=== PATIENT | female | born 1990 | race Caucasian/White ===

== ENCOUNTER 2021-05-31 11:15 | Emergency (ER) | payer OTHER, SELFPAY ==
--- NOTE | ~2021-05-31 | XR_ITS ---
EXAMINATION: XR CHEST CLINICAL INFORMATION: Cough. COMPARISON: Chest 11/19/2019 TECHNIQUE: Frontal view of the chest was obtained. FINDINGS: The lungs are hypoexpanded but clear of acute process. The heart size and pulmonary vascularity is normal. No gross bony abnormality seen. XR/XR chest 1V IMPRESSION: Unremarkable chest exam
[2021-05-31 11:34] VITALS: BP 144/80; PULSE 103; RESP 20; TEMP 36.4; O2SAT 100; BMI 46.0
--- NOTE | 2021-05-31 11:51 | ED.URI ---
HPI - URI/Sore Throat General Chief Complaint: General Medical Stated Complaint: sob Time Seen by Provider: 05/31/21 11:36 Source: patient Mode of arrival: ambulatory Limitations: no limitations History of Present Illness MD elicited complaint: fever, cough, sore throat and rhinorrhea Pertinent past history: asthma Onset (ago): day(s) (2) Consistency: constant Description of mucous: clear Able to tolerate fluids by mouth: Yes Exacerbating factors: nothing Relieving factors: nothing Context: sick contacts (mother in law has COVID) Associated symptoms: fever, chills, myalgias, headache, rhinorrhea, sore throat and cough Treatments prior to arrival: ibuprofen Related Data Previous Rx's Medication Instructions Recorded albuterol sulfate 90 mcg/actuation 2 puff INHALATION Q4-6H PRN #6.7 g 04/17/21 aerosol inhaler (ProAir HFA) cetirizine 10 mg tablet 10 mg PO DAILY PRN #30 tab 04/17/21 metformin 500 mg tablet 500 mg PO BID 30 Days #60 tab 04/17/21 ondansetron 4 mg disintegrating 4 mg PO Q8H PRN #20 tab 05/31/21 tablet Allergies Allergy/AdvReac Type Severity Reaction Status Date / Time peanut [PEANUTS] Allergy Unknown ANAPHYLAXIS Unverified 07/05/20 19:06 Review of Systems Review of Systems: Constitutional : positive Fever, positive Chills, positive fatigue, positive Malaise ENT/Mouth : positive sore throat, positive runny nose Eyes: No Discharge Cardiovascular : No Chest Pain, No SOB Respiratory : No Cough, No Sputum Gastrointestinal : No Nausea, No Vomiting, No Diarrhea Genitourinary : No Dysuria, No Urinary Frequency Musculoskeletal : positive Myalgia Skin : No rash Neuro : No Headache All other systems are reviewed and are negative [facility] Past Medical History Attestation statement: The following information was validated with the patient. Medical History Asthma Diabetes Hyperthyroidism Surgical History Hx of cholecystectomy Social History Social History (Updated 05/31/21 @ 11:52 by Jessica Razo DO) Patient Tobacco Use Status: Never used Tobacco Use of substances other than those prescribed or required for medical reasons: No Advance Directives: No Advance Directives Information Provided: No Patient : No Physical Exam Vital Signs: Vital Signs: Last Vital Signs Temp 97.5 F 05/31/21 11:34 Pulse 103 H 05/31/21 11:34 Resp 20 05/31/21 11:34 BP 144/80 H 05/31/21 11:34 Pulse Ox 100 05/31/21 11:34 Body Mass Index 46.0 Appearance: Alert. Oriented X3. No acute distress. Anxious Eyes: Pupils equal, round and reactive to light. ENT: Pharynx normal. Neck: Normal inspection. Neck supple. CVS: Normal heart rate and rhythm. Pulses normal. Respiratory: No respiratory distress. Breath sounds normal. Abdomen: Soft and nontender. Skin: Skin warm and dry. Normal skin color. Normal skin turgor. Extremities: No lower extremity edema. No calf ttp Neuro: Oriented X 3. No motor deficit. No sensory deficit. Course Course Course Narrative: negative xray, no hypoxia, stable for DC MDM - URI/Sore Throat MDM Narrative Medical decision making narrative: 30 yo female with hx of asthma, DM here with COVID like symptoms taking care of a COVID family member - she belongs to a [employer] that does not want its followers to get vaccinated as this is some form of a demonic plague, at this time CXR and COVID swab ordered, she is 100% on RA. Lab Data Labs: Lab Results 05/31/21 Range/Units 11:59 COVID-19 (AUTUMN) Negative (Negative) COVID-19 Clin Com See Note Discharge Plan Discharge Clinical Impression: Acute viral syndrome, Close exposure to 2019-nCoV Patient Disposition: Home, Self-Care Instructions: Viral Syndrome (ED), COVID-19 (Coronavirus Disease 2019) (ED) Additional Instructions: return to ED for any worsening symptoms or concerns negative COVID test today - presumed COVID would retest in 2 days Chest xray negative Prescriptions: New ondansetron 4 mg tablet,disintegrating 4 mg PO Q8H PRN (Reason: nausea and vomiting) Qty: 20 RF: 0 No Action albuterol sulfate [ProAir HFA] 90 mcg/actuation HFA aerosol inhaler 2 puff inhalation Q4-6H PRN (Reason: shortness of breath or wheezing) Qty: 6.7 RF: 1 metformin 500 mg tablet 500 mg PO BID 30 Days Qty: 60 RF: 1 cetirizine 10 mg tablet 10 mg PO DAILY PRN (Reason: allergy symptoms) Qty: 30 RF: 1 Stand Alone Forms: Work/School Release
[2021-05-31] MEDS: Ondansetron ODT 4 MG TAB.RAPDIS TRANSLINGU (12:10)
[2021-05-31 12:24] LABS: COVID-19 Test Negative (Negative)
[2021-05-31] MEDS: Acetaminophen 325 MG TABLET 650 MG PO (12:26)
[2021-05-31] MEDS: Ibuprofen 600 MG TABLET PO (12:26)
== END 2021-05-31 12:53 | disposition home or self-care (01) ==
PROVIDERS: Emergency Provider Emergency Medicine; PCP Physician Assistant
DX: B34.9 Viral infection, unspecified (principal); R06.02 Shortness of breath; R50.9 Fever, unspecified; R51.9 Headache, unspecified; M79.10 Myalgia, unspecified site; Z20.822 Contact with and (suspected) exposure to COVID-19; Z79.899 Other long term (current) drug therapy
CPT/HCPCS: 36415; 71045; 87635; 99283

== ENCOUNTER 2021-06-03 13:53 | Emergency (ER) | payer OTHER, SELFPAY ==
[2021-06-03 15:08] VITALS: BP 132/69; PULSE 92; RESP 18; TEMP 36.8; O2SAT 99; BMI 45.1
[2021-06-03] MEDS: Acetaminophen 325 MG TABLET 650 MG PO (15:17)
[2021-06-03 15:43] VITALS: BP 119/74; PULSE 90; RESP 16; O2SAT 99
--- NOTE | 2021-06-03 16:04 | ED_ITS ---
HPI - General Adult General Chief complaint: General Medical Stated complaint: cough Time Seen by Provider: 06/03/21 15:53 Source: patient Mode of arrival: ambulatory History of Present Illness HPI narrative: 30-year-old female with a past medical history of asthma, diabetes, hyperthyroid to the ED complaining of subjective fever, headache, chills, nausea, vomiting, diarrhea, SOB, chest discomfort when coughing times 3- 4 days. Reports recently tested negative for COVID-19 on 05/31. Also had negative CXR at that time. Was advised to get retested secondary to still feeling asymptomatic. Reports SOB overall improved, however feels generalized fatigue/malaise. Has COVID-19 positive contact living in her home. Denies LE edema, history of blood clots, abdominal pain, constipation Onset (ago): day(s) Related Data Previous Rx's Medication Instructions Recorded albuterol sulfate 90 mcg/actuation 2 puff INHALATION Q4-6H PRN #6.7 g 04/17/21 aerosol inhaler (ProAir HFA) cetirizine 10 mg tablet 10 mg PO DAILY PRN #30 tab 04/17/21 metformin 500 mg tablet 500 mg PO BID 30 Days #60 tab 04/17/21 ondansetron 4 mg disintegrating 4 mg PO Q8H PRN #20 tab 05/31/21 tablet benzonatate 100 mg capsule 100 mg PO TID PRN #14 cap 06/03/21 (Tessalon Perlvenu) fluticasone propionate 50 2 spray INTRANASAL DAILY #16 g 06/03/21 mcg/actuation nasal spray,suspension (Flonase Allergy Relief) ondansetron HCl 4 mg tablet 4 mg PO Q8H PRN #10 tab 06/03/21 (Zofran) Allergies Allergy/AdvReac Type Severity Reaction Status Date / Time peanut [PEANUTS] Allergy Unknown ANAPHYLAXIS Unverified 07/05/20 19:06 Review of Systems Review of Systems: Constitutional: +Fever, + Chills, No Night Sweats, + Fatigue, + Malaise ENT/Mouth: No Ear Pain, No Nasal Congestion, No Sinus Pain, No Hoarseness, No sore throat, No Rhinorrhea Eyes: No Eye Pain, No Discharge, No Vision Changes Cardiovascular: No Chest Pain, No SOB, No Dyspnea on Exertion, No Orthopnea, No Edema, No Palpitations Respiratory: + Cough, No Sputum, No Wheezing, No Dyspnea Gastrointestinal: + Nausea, + Vomiting, + Diarrhea, No Constipation, No Abdomi nal pain Genitourinary: No Dysuria, No Hematuria, No Flank Pain, No Urinary Flow Changes Musculoskeletal: No joint pain, No Myalgias Skin: No Skin Lesions, No rash Neuro: + Weakness, No Loss of Consciousness, No Dizziness, + Headache Yes all other systems are reviewed and are negative [facility] Past Medical History Attestation statement: The following information was validated with the patient. Medical History Asthma Diabetes Hyperthyroidism Surgical History Hx of cholecystectomy Social History Social History (Updated 05/31/21 @ 11:52 by Jessica Razo DO) Patient Tobacco Use Status: Never used Tobacco Advance Directives: No Advance Directives Information Provided: No Patient : No Physical Exam Vital Signs: Vital Signs: Last Vital Signs Temp 98.4 F 06/03/21 17:06 Pulse 80 06/03/21 17:06 Resp 12 06/03/21 17:06 BP 118/68 06/03/21 17:06 Pulse Ox 99 06/03/21 17:06 Body Mass Index 45.1 Const: General: cooperative, healthy appearing and no acute distress Orientation/consciousness: patient oriented x3 Limitations: no limitations HENMT: Head: Yes normal to inspection Ears: hearing grossly normal bilaterally General nose exam: Normal external nose present Face and sinus: Yes normal facial exam Eyes: General: appearance normal, both eyes and all related structures EOM: EOMs intact bilaterally Neck: Neck: Yes normal visual inspection Resp: Effort & Inspection: normal respiratory effort Auscultation: clear to auscultation bilaterally, no rales, no rhonchi and no wheezes Cardio: Rate: regular rate Heart sounds: S1 normal heart sound present and S2 normal heart sound present GI: Inspection: Yes normal to inspection Palpation (GI): Soft to palpation, nontender, no guarding and not rigid Skin: Rashes: no rashes Wounds: no wounds Neuro: General: patient oriented x3 Gait exam (Neuro): Normal gait present Extrem: General: Yes normal to inspection and Yes no pedal edema Course Course Course Narrative: -COVID-19 negative > Will obtain labs -no leukocytosis, labs otherwise unremarkable -UA and urine negative -1822--COVID-19/influenza/RSV negative. Results discussed with patient including worrisome signs and symptoms and strict return precautions, she verbalized understanding feel safe for discharge home Medical Decision Making MDM Narrative Medical decision making narrative: 30-year-old female with a past medical history of asthma, diabetes, hyperthyroid to the ED complaining of subjective fever, headache, chills, nausea, vomiting, diarrhea, SOB, chest discomfort when coughing times 3-4 days. On exam VSS, NAD, nontoxic appearing, lungs CTA, no pedal edema. Concern for viral syndrome/COVID-19. Unlikely pneumonia/PE/ACS No need to repeat CXR at this time as CXR 3 days ago was WNL, no tachycardia, oxygen saturations 99% on RA Plan: COVID-19 testing Lab Data Result diagrams: 06/03/21 16:36 06/03/21 16:36 Labs: Lab Results 06/03/21 06/03/21 06/03/21 Range/Units 15:17 16:36 16:36 WBC 10.7 (4.8-10.8) X10*3/uL RBC 5.13 (4.20-5.50) X10*6/uL Hgb 13.9 (12.0-16.0) g/dl Hct 41.3 (37-47) % MCV 80.5 (80-98) fL MCH 27.1 (27.0-33.0) pg MCHC 33.7 (31.0-35.0) g/dl RDW 12.7 (11.0-16.0) % Plt Count 205 (160-400) X10*3/uL MPV 11.0 (9.4-12.3) fL Immature Gran % (Auto) 0.3 (0.0-0.4) % Neut % (Auto) 63.7 (45-73) % Lymph % (Auto) 28.4 (20-40) % [place] % (Auto) 5.4 (2-11) % Eos % (Auto) 1.5 (0-4) % Baso % (Auto) 0.7 (0-2) % Lymph # (Auto) 3.0 (1.2-4.9) X10*3/uL [place] # (Auto) 0.6 (0.1-1.2) X10*3/uL Eos # (Auto) 0.2 (0.0-0.4) X10*3/uL Baso # (Auto) 0.1 (0.0-0.2) X10*3/uL Abs Immat Gran (auto) 0.03 (0.00-0.03) X10*3/uL Absolute Neuts (auto) 6.8 (2.0-8.3) X10*3/uL Absolute Nucleated RBC 0.000 (0.0-0.012) X10*3/uL Nucleated RBC % (auto) 0.0 (0.0-0.2) /100WBC Sodium 137 (135-145) mmol/L Potassium 4.1 (3.3-5.1) mmol/L Chloride 103 (96-108) mmol/L Carbon Dioxide 24 (22-29) mmol/L Anion Gap 14 (12-20) BUN 10 (9-16) mg/dL Creatinine 0.80 (0.5-1.4) mg/dL Estim Creat Clear Calc 141.4 Estimated GFR > 60 Random Glucose 271 H (60-115) mg/dL Calcium 9.3 (8.4-10.2) mg/dL Magnesium 1.9 (1.6-2.6) mg/dL Total Bilirubin < 0.2 (0.0-1.0) mg/dL Direct Bilirubin < 0.2 (0.0-0.5) mg/dL AST 16 (5-31) U/L ALT 35 H (0-31) U/L Alkaline Phosphatase 110 (39-117) U/L Total Protein 7.4 (6.5-8.0) g/dL Albumin 4.2 (3.5-5.0) g/dL Lipase 32 (8-78) U/L Urine Color Urine Appearance Urine pH (5.0-8.0) Ur Specific [place] (1.005-1.025) Urine Protein (NEG-TRACE) MG/DL Urine Glucose (UA) (NEG) MG/DL Urine Ketones (NEG) MG/DL Urine Blood (NEG) Urine Nitrite (NEG) Ur Leukocyte Esterase (NEG) Urine RBC (0) /HPF Urine WBC (0-4) /HPF Ur Squamous Epith Cells /LPF Urine Bacteria /LPF Urine Mucus /LPF Urine Test (NEGATIVE) Coronavirus (PCR) (Negative) COVID-19 (AUTUMN) Negative (Negative) COVID-19 Clin Com See Note Influenza Type A (PCR) (Negative) Influenza Type B (PCR) (Negative) RSV RNA Qual (PCR) (Negative) 06/03/21 06/03/21 06/03/21 Range/Units 16:53 16:59 16:59 WBC (4.8-10.8) X10*3/uL RBC (4.20-5.50) X10*6/uL Hgb (12.0-16.0) g/dl Hct (37-47) % MCV (80-98) fL MCH (27.0-33.0) pg MCHC (31.0-35.0) g/dl RDW (11.0-16.0) % Plt Count (160-400) X10*3/uL MPV (9.4-12.3) fL Immature Gran % (Auto) (0.0-0.4) % Neut % (Auto) (45-73) % Lymph % (Auto) (20-40) % [place] % (Auto) (2-11) % Eos % (Auto) (0-4) % Baso % (Auto) (0-2) % Lymph # (Auto) (1.2-4.9) X10*3/uL [place] # (Auto) (0.1-1.2) X10*3/uL Eos # (Auto) (0.0-0.4) X10*3/uL Baso # (Auto) (0.0-0.2) X10*3/uL Abs Immat Gran (auto) (0.00-0.03) X10*3/uL Absolute Neuts (auto) (2.0-8.3) X10*3/uL Absolute Nucleated RBC (0.0-0.012) X10*3/uL Nucleated RBC % (auto) (0.0-0.2) /100WBC Sodium (135-145) mmol/L Potassium (3.3-5.1) mmol/L Chloride (96-108) mmol/L Carbon Dioxide (22-29) mmol/L Anion Gap (12-20) BUN (9-16) mg/dL Creatinine (0.5-1.4) mg/dL Estim Creat Clear Calc Estimated GFR Random Glucose (60-115) mg/dL Calcium (8.4-10.2) mg/dL Magnesium (1.6-2.6) mg/dL Total Bilirubin (0.0-1.0) mg/dL Direct Bilirubin (0.0-0.5) mg/dL AST (5-31) U/L ALT (0-31) U/L Alkaline Phosphatase (39-117) U/L Total Protein (6.5-8.0) g/dL Albumin (3.5-5.0) g/dL Lipase (8-78) U/L Urine Color YELLOW Urine Appearance CLEAR Urine pH 5.5 (5.0-8.0) Ur Specific [place] >= 1.030 H (1.005-1.025) Urine Protein NEG (NEG-TRACE) MG/DL Urine Glucose (UA) >=1000 H (NEG) MG/DL Urine Ketones NEG (NEG) MG/DL Urine Blood TRACE (NEG) Urine Nitrite NEG (NEG) Ur Leukocyte Esterase NEG (NEG) Urine RBC 0-2 (0) /HPF Urine WBC 0-2 (0-4) /HPF Ur Squamous Epith Cells 2+ /LPF Urine Bacteria NONE /LPF Urine Mucus 1+ /LPF Urine Test NEGATIVE (NEGATIVE) Coronavirus (PCR) NEGATIVE (Negative) COVID-19 (AUTUMN) (Negative) COVID-19 Clin Com Influenza Type A (PCR) NEGATIVE (Negative) Influenza Type B (PCR) NEGATIVE (Negative) RSV RNA Qual (PCR) NEGATIVE (Negative) Discharge Plan Discharge Clinical Impression: Acute viral syndrome Patient Disposition: Home, Self-Care Instructions: Viral Syndrome (ED) Additional Instructions: Your blood work was reassuring today in the ED You tested negative for COVID-19, flu, and RSV Tessalon Perles for cough, take as needed Flonase will help with nasal decongestion, and Zofran as antinausea medication Rest, stay hydrated Follow up with her doctor If her symptoms persist or worsen, if high fevers unresolved medications, or unable to tolerate food or drink please return to the ED Prescriptions: New ondansetron HCl [Zofran] 4 mg tablet 4 mg PO Q8H PRN (Reason: nausea and vomiting) Qty: 10 RF: 0 benzonatate [Tessalon Perles] 100 mg capsule 100 mg PO TID PRN (Reason: cough) Qty: 14 RF: 0 fluticasone propionate [Flonase Allergy Relief] 50 mcg/actuation spray,suspension 2 spray intranasal DAILY Qty: 16 RF: 0 No Action ondansetron 4 mg tablet,disintegrating 4 mg PO Q8H PRN (Reason: nausea and vomiting) Qty: 20 RF: 0 albuterol sulfate [ProAir HFA] 90 mcg/actuation HFA aerosol inhaler 2 puff inhalation Q4-6H PRN (Reason: shortness of breath or wheezing) Qty: 6.7 RF: 1 metformin 500 mg tablet 500 mg PO BID 30 Days Qty: 60 RF: 1 cetirizine 10 mg tablet 10 mg PO DAILY PRN (Reason: allergy symptoms) Qty: 30 RF: 1 Referrals: Steve Ortiz PA-C [Primary Care Provider] - 3 days Stand Alone Forms: Work/School Release
[2021-06-03 16:13] LABS: COVID-19 Test Negative (Negative)
[2021-06-03] MEDS: 0.9 % Sodium Chloride 1,000 ML 999 ML IVCONT (16:39)
[2021-06-03 16:43] LABS: MANUAL DIFF FLAG NO
[2021-06-03 16:44] LABS: Basophils Absolute Auto 0.1 X10*3/uL (0.0-0.2); Basophils Percent Auto 0.7 % (0-2); Eosinophils Absolute Auto 0.2 X10*3/uL (0.0-0.4); Eosinophils Percent Auto 1.5 % (0-4); Hematocrit 41.3 % (37-47); Hemoglobin 13.9 g/dl (12.0-16.0); Imm Gran Abs Auto 0.03 X10*3/uL (0.00-0.03); Imm Gran Pct Auto 0.3 % (0.0-0.4); Lymphocytes Percent Auto 28.4 % (20-40); Mean Corpuscular HGB Conc 33.7 g/dl (31.0-35.0); Mean Corpuscular Hemoglobin 27.1 pg (27.0-33.0); Mean Corpuscular Volume 80.5 fL (80-98); Monocytes Absolute Auto 0.6 X10*3/uL (0.1-1.2); Monocytes Percent Auto 5.4 % (2-11); Neutrophils Absolute Auto 6.8 X10*3/uL (2.0-8.3); Neutrophils Percent Auto 63.7 % (45-73); Platelet Count 205 X10*3/uL (160-400); Red Blood Count 5.13 X10*6/uL (4.20-5.50); Red Cell Distribution Width 12.7 % (11.0-16.0); White Blood Count 10.7 X10*3/uL (4.8-10.8)
[2021-06-03] MEDS: ondansetron HCL 4 MG/2 ML VIAL IVPUSH (16:58)
[2021-06-03 17:06] VITALS: BP 118/68; PULSE 80; RESP 12; TEMP 36.9; O2SAT 99
[2021-06-03 17:17] LABS: Glucose Urine UA >=1000 MG/DL (NEG); Leukocyte Esterase Urine NEG (NEG); Nitrite Urine NEG (NEG); PH 5.5 (5.0-8.0); Specific Gravity - Urine >= 1.030 (1.005-1.025); UACC Culture Trigger NO; Urine Blood TRACE (NEG); Urine Ketones NEG (NEG); Urine Protein NEG (NEG-TRACE)
[2021-06-03 17:24] LABS: Alanine Aminotransferase 35 U/L (0-31); Albumin Level 4.2 g/dL (3.5-5.0); Alkaline Phosphatase 110 U/L (39-117); Anion Gap 14 (12-20); Aspartate Amino Transferase 16 U/L (5-31); Bilirubin Direct < 0.2 mg/dL (0.0-0.5); Bilirubin Total < 0.2 mg/dL (0.0-1.0); Blood Urea Nitrogen 10 mg/dL (9-16); Calcium 9.3 mg/dL (8.4-10.2); Carbon Dioxide 24 mmol/L (22-29); Chloride 103 mmol/L (96-108); Creatinine Clr Calc Pharmacy 141.4; Estimated Glomerular Filt Rate > 60; Glucose Random 271 mg/dL (60-115); Lipase 32 U/L (8-78); Magnesium 1.9 mg/dL (1.6-2.6); Potassium 4.1 mmol/L (3.3-5.1); Sodium 137 mmol/L (135-145); Total Protein 7.4 g/dL (6.5-8.0)
[2021-06-03 17:33] LABS: Appearance Urine CLEAR; Color Urine YELLOW; UPreg QC Valid YES; Urine Pregnancy NEGATIVE (NEGATIVE)
[2021-06-03 17:39] LABS: Mucus Urine 1+ /LPF; RBC Urine 0-2 /HPF (0); Squamous Epithelial Cell Urine 2+ /LPF; WBC Urine 0-2 /HPF (0-4)
[2021-06-03 17:48] LABS: Influenza A PCR NEGATIVE (Negative); Influenza B PCR NEGATIVE (Negative); Resp Syncy Virus RNA Qual PCR NEGATIVE (Negative); SARS COV2 PCR INHOUSE NEGATIVE (Negative)
== END 2021-06-03 19:11 | disposition home or self-care (01) ==
PROVIDERS: Physician Assistant; Emergency Provider Emergency Medicine; PCP Physician Assistant
DX: B34.9 Viral infection, unspecified (principal); Z20.822 Contact with and (suspected) exposure to COVID-19; J45.909 Unspecified asthma, uncomplicated; E11.9 Type 2 diabetes mellitus without complications
CPT/HCPCS: 0241U; 36415; 80048; 80076; 81001; 81025; 83690; 83735; 85025; 87635; 96361; 96374; 99284; J2405

== ENCOUNTER 2021-12-03 14:38 | Emergency (ER) | payer OTHER, SELFPAY ==
[2021-12-03 16:06] VITALS: BP 153/92; PULSE 100; RESP 18; TEMP 37; O2SAT 100; BMI 45.2
--- NOTE | 2021-12-03 17:55 | ED_ITS ---
HPI - Abdominal Pain General Chief Complaint: Abdominal Pain Stated Complaint: abd pain Time Seen by Provider: 12/03/21 17:36 Source: patient Mode of arrival: ambulatory Limitations: no limitations History of Present Illness HPI narrative: 31-year-old female who presents emergency department for evaluation of abdominal pain times 2-1/2 weeks. She states that she feels like something is moving inside of her abdomen and then she also gets spasm and tightness of her abdominal muscles. She states that the pain was initially intermittent but over the last 4 days the pain has become constant but waxes and wanes in intensity. She states that the pain ranges from 6/10 to 9/10. She also states that over the past 4 days she has developed pain in her lower pelvic area. She states this pain is constant sharp and is worse with urination. She states that she has not a menstrual period in 2 1/2 years, she had an IUD which was removed 5 months prior. She states that she has been having menstrual bleeding for the past 3 weeks. She does have a history of von Willebrand disease. She denies vaginal discharge. She states she is sexually active and has not been using any control. Related Data Previous Rx's Medication Instructions Recorded albuterol sulfate 90 mcg/actuation 2 puff INHALATION Q4-6H PRN #6.7 g 04/17/21 aerosol inhaler (ProAir HFA) cetirizine 10 mg tablet 10 mg PO DAILY PRN #30 tab 04/17/21 metformin 500 mg tablet 500 mg PO BID 30 Days #60 tab 04/17/21 ondansetron 4 mg disintegrating 4 mg PO Q8H PRN #20 tab 05/31/21 tablet benzonatate 100 mg capsule 100 mg PO TID PRN #14 cap 06/03/21 (Tessalon Perles) fluticasone propionate 50 2 spray INTRANASAL DAILY #16 g 06/03/21 mcg/actuation nasal spray,suspension (Flonase Allergy Relief) ondansetron HCl 4 mg tablet 4 mg PO Q8H PRN #10 tab 06/03/21 (Zofran) amoxicillin 875 mg-potassium 1 tab PO BID 10 Days #20 tab 10/09/21 clavulanate 125 mg tablet (Augmentin) Allergies Allergy/AdvReac Type Severity Reaction Status Date / Time peanut [PEANUTS] Allergy Unknown ANAPHYLAXIS Verified 12/03/21 16:06 Review of Systems Review of Systems Yes all other systems are reviewed and are negative [facility] Past Medical History [facility] Narrative: Past surgical history: Cholecystectomy, x2. Social history: Patient smokes 3-4 cigarettes per day times 16 years. She denies alcohol use. She states she smokes marijuana daily, 3 times a day. Medical History Asthma Diabetes Hyperthyroidism Surgical History Hx of cholecystectomy Social History Social History Patient Tobacco Use Status: Never used Tobacco Advance Directives: No Advance Directives Information Provided: No Patient : No Physical Exam ED Vital Signs: Vital Signs - 24 hr 12/03/21 16:06 Temperature 98.6 F Pulse Rate 100 Respiratory Rate 18 Blood Pressure 153/92 H Pulse Oximetry 100 BMI result Body Mass Index 45.2 Const Other: Awake, alert, patient with a BMI 45.3, very pleasant cooperative but does appear to be in distress secondary to her abdominal pain, she answers all questions appropriately HENAZ Head: Yes normal to inspection, Yes normocephalic and Yes atraumatic Ears: external ears normal General nose exam: Normal external nose present Face and sinus: Yes normal facial exam Mouth: Normal oral and palatal mucosa present Throat: Yes posterior oropharynx normal Eyes General: appearance normal, both eyes and all related structures Pupils: Equal, round and reactive pupils present Neck Neck: Yes normal visual inspection, Yes no lymphadenopathy, Yes trachea midline and Yes supple Chest Chest palpation & inspection: normal inspection of the chest and normal palpation of entire chest wall Resp Effort & Inspection: normal respiratory effort and able to speak in complete sentences Auscultation: clear to auscultation bilaterally Cardio Rate: regular rate Rhythm: regular rhythm Heart sounds: S1 normal heart sound present, S2 normal heart sound present and no murmurs GI Inspection: Yes normal to inspection Palpation (GI): Soft to palpation, Tenderness to palpation present (GI) in the LLQ (Moderate), in the RLQ (Moderate) and suprapubicly (With moderate) and no guarding Auscultation: normal bowel sounds General: Yes no CVA tenderness Back/Spine/Pelvis Back: no CVA tenderness Skin General skin exam: no rashes or lesions noted Neuro Cranial nerves: Yes CN's II-XII intact bilaterally and Yes Equal, round and reactive pupils present Cognition (Neuro): normal cognition Motor exam (neuro): 5/5 motor strength present throughout Extrem General: Yes normal to inspection Psych Appearance: grossly normal Speech and movement: Normal speech and movement present Affect: normal affect Attitude: cooperative Thought process: Normal thought process present Thought content: Normal thought content present Course Course Course Narrative: 31-year-old female who presents emergency department for evaluation of abdominal pain x2 and half weeks worse times the past 4 days. The patient had an IUD which was removed 5 months prior, prior to that she had no menstrual period for 2-1/2 years. She has been menstruating for the past 3 weeks. She does have a history of von Willebrand's disease. She is sexually active and has not been using control. Vital signs were unremarkable except for an elevated blood pressure of 153/92. Physical examination revealed lower abdominal tenderness and lower pelvic tenderness. Laboratory evaluation was ordered. CT scan of the abdomen pelvis with IV contrast will also be obtained. I did order morphine 4 mg IV, Zofran 4 mg IV and normal saline x1 L. 1849: Patient states that she lives in a fpc and does not want to stay and wait for the workup. She states that she does not feel safe here and wants to leave. I did try to convince the patient to stay so that we could further evaluate her pain and give her pain medications. She states she had already called her mother and her mother is 5 minutes away and she wants to leave. I did tell the patient that if she changed her mind she should come back to the emergency department and we can re-evaluate her.. Discharge Plan Discharge Clinical Impression: Abdominal pain Patient Disposition: Home, Self-Care Instructions: Abdominal Pain (ED) Additional Instructions: If you change your mind and you want us to do blood work, a CT scan and treat your pain, please come back to the emergency department. Follow-up with your doctor in 2 days. Please return to the emergency department if your symptoms get worse or if you develop any symptoms that are concerning to you. Prescriptions: No Action ondansetron HCl [Zofran] 4 mg tablet 4 mg PO Q8H PRN (Reason: nausea and vomiting) Qty: 10 0RF benzonatate [Tessalon Perles] 100 mg capsule 100 mg PO TID PRN (Reason: cough) Qty: 14 0RF fluticasone propionate [Flonase Allergy Relief] 50 mcg/actuation spray,suspension 2 spray intranasal DAILY Qty: 16 0RF Rx Instructions: administer into each nostril ondansetron 4 mg tablet,disintegrating 4 mg PO Q8H PRN (Reason: nausea and vomiting) Qty: 20 0RF albuterol sulfate [ProAir HFA] 90 mcg/actuation HFA aerosol inhaler 2 puff inhalation Q4-6H PRN (Reason: shortness of breath or wheezing) Qty: 6.7 1RF metformin 500 mg tablet 500 mg PO BID 30 Days Qty: 60 1RF cetirizine 10 mg tablet 10 mg PO DAILY PRN (Reason: allergy symptoms) Qty: 30 1RF amoxicillin-pot clavulanate [Augmentin] 875-125 mg tablet 1 tab PO BID 10 Days Qty: 20 0RF Stand Alone Forms: Work/School Release
== END 2021-12-03 19:04 | disposition home or self-care (01) ==
PROVIDERS: Emergency Provider Emergency Medicine Emergency Medical Services; PCP Internal Medicine
DX: R10.9 Unspecified abdominal pain (principal); E11.9 Type 2 diabetes mellitus without complications
CPT/HCPCS: 96361; 96374; 96375; 99282; 99284

== ENCOUNTER → 2022-03-07 11:11 | Outpatient (BNVA) | payer OTHER, SELFPAY | PROVIDERS: PCP Internal Medicine; Referring Provider Internal Medicine; Visit Provider Physician Assistant Surgical | DX: Z13.89 Encounter for screening for other disorder (principal) ==

== ENCOUNTER → 2022-03-24 14:55 | Outpatient (BNVA) | payer OTHER, SELFPAY | PROVIDERS: PCP Internal Medicine; Visit Provider Physician Assistant | DX: Z13.89 Encounter for screening for other disorder (principal) ==

== ENCOUNTER 2022-09-17 14:59 | Outpatient (REF) | payer OTHER, SELFPAY ==
[2022-09-17 17:21] LABS: Influenza A PCR NEGATIVE (Negative); Influenza B PCR NEGATIVE (Negative); Resp Syncy Virus RNA Qual PCR NEGATIVE (Negative); SARS COV2 PCR INHOUSE NEGATIVE (Negative)
== END 2022-09-17 15:00 | disposition home or self-care (01) ==
LOC: HO.LNP 14:59
PROVIDERS: Visit Provider Nurse Practitioner Family
DX: Z20.822 Contact with and (suspected) exposure to COVID-19 (principal); R11.10 Vomiting, unspecified; R19.7 Diarrhea, unspecified
CPT/HCPCS: 0241U

== ENCOUNTER 2024-05-06 09:38 | Outpatient (AMB) | payer OTHER, SELFPAY ==
[2024-05-06 09:39] VITALS: BP 126/80; PULSE 95; O2SAT 98; BMI 44.2
--- NOTE | 2024-05-06 09:39 | A.OFFPC_ITS ---
Vital Signs 05/06/24 09:39 Height 5 ft 7 in Weight 282 lb BMI 44.2 BP 126/80 Blood Pressure Location Lt brachial Position Sitting Pulse 95 Pulse Source Pulse Oximeter Pulse Oximetry (%) 98 Oxygen Delivery Method Room Air Intake Visit Reasons: Regular Check up Intake Note: Pt is here today for a follow up visit. Pt states that she is homeless and she lives at [facility]. Allergies ibuprofen Allergy (Mild, Verified 05/06/24 09:43) rash, shortness of breath peanut [PEANUTS] Allergy (Unknown, Verified 05/06/24 09:43) ANAPHYLAXIS Tobacco use date assessed: 05/06/24 Dental Screening Dental Screen Date: 05/06/24 Did you have a dental visit in the last 12 months?: Yes Did you have a dental problem in the last 6 months where you did not have access to dental care?: No Was dental information given to patient?: Patient has dentist HPI Regular Check up HPI Details Pt presents for f/u. Pt was hospitalized at [facility] for persistent ovarian comlex cyst and was recommended to have surgery after improving her poorly controlled DM. She f/u with [facility] and started Insulin and Metformin. POC has been improving. Pt lives in [facility] and has been looking for housisng. She will start therapy for chronic anxiety and has been taking Trazodone QHS. She denies SI, HI. [facility] Medical History (Updated 05/08/24 @ 17:22 by Belinda Chisholm MD) Trauma in childhood Rash Obesity PTSD (post-traumatic stress disorder) Bipolar 1 disorder Anxiety Depression Hyperthyroidism Diabetes Asthma Surgical History Previous section Hx of cholecystectomy Family History Mother CADASIL (cerebral AD arteriopathy w infarcts and leukoencephalopathy) Father Heart disease Social History Housing: Apartment Alcohol intake: current Patient Tobacco Use Status: Current everyday Tobacco user Cigarette Packs Per Day: 2 e-Cigarette/Vaping Use: Never Used service: No Current occupational status: employed Cognitive needs: No Hearing needs: No Vision needs: No Questionnaire PHQ-9 Over the last 2 weeks, how often have you been bothered by any of the following problems? 1. Little interest or pleasure in doing things: nearly every day 2. Feeling down, depressed, or hopeless: nearly every day 3. Trouble falling or staying asleep, or sleeping too much: nearly every day 4. Feeling tired or having little energy: nearly every day 5. Poor appetite or overeating: more than half the days 6. Feeling bad about yourself - or that you are a failure or have let yourself or your family down: several days 7. Trouble concentrating on things, such as reading the newspaper or watching television: nearly every day 8. Moving or speaking so slowly that other people could have noticed. Or the opposite - being so fidgety or restless that you have been moving around a lot more than usual: more than half the days 9. Thoughts that you would be better off or of hurting yourself in some way: not at all Total score: 20 Depression Screening Interpretation: Positive Depression Screening Follow-up: Existing condition, In treatment and Community Mental Health Worker F/U Depression Screening Done: Yes Source: Developed by Drs. Cesar Orellana, Kelsie Tello, Ck Noyola and colleagues, with an educational isa from [employer]. Thrive Questionnaire Date Thrive assessed: 05/06/24 I am a: Patient What is your living situation today?: I have a place to live, but I am worried about losing it in the future Within the past 12 months, did the food you bought not last and you didn't have the money to get more?: Sometimes True Within the past 12 months, did you worry whether your food would run out before you got money to buy more?: Sometimes True Do you have trouble paying for medicines?: No Do you have trouble getting transportation to medical appointments?: Yes Do you have trouble paying your heating and electricity bill?: I choose not to answer this question Do you have trouble taking care of your child, family member or friend?: I choose not to answer this question Do you have trouble with day-to-day activities such as bathing, preparing meals, shopping, managing finances, etc.?: No Are you currently unemployed and looking for a job?: Yes Are you interested in more education?: Yes Please select the resources that you would like help with: Housing/Residential, Food, Paying for medicine, Transportation, Utilities, Childcare, Care for elder or disabled, Daily support and Job search/training Currently or been in a relationship where the following occur: I choose not to answer THRIVE Score: 4 AUDIT C Alcohol Use Questionnaire (AUDIT-C) 1. How often do you have a drink containing alcohol?: Never 3. How often do you have six or more drinks on one occasion?: Never Total Score: 0 ONIEL-7 AMB Questionnaire ONIEL-7 Date ONIEL - 7 assessed: 05/06/24 Feeling nervous, anxious, or on edge: 3 = Nearly every day Not being able to stop or control worryin = Several days Worrying too much about different things: 2 = More than half the days Trouble relaxin = Nearly every day Being so restless that it is hard to sit still: 3 = Nearly every day Becoming easily annoyed or irritable: 3 = Nearly every day Feeling afraid as if something awful might happen: 1 = Several days Total ONIEL-7 score (0-4 normal; 5-9 mild; 10-14 moderate; 15-21 severe): 16 Source: Developed by Drs. Cesar Orellana, Kelsie Tello, Ck Noyola and colleagues, with an educational isa from [employer]. Review of Systems Const All systems reviewed & are unremarkable except as noted in HPI and below Reports no additional complaints Eyes Reports no additional complaints ENT Reports no additional complaints Card Reports no additional complaints Resp Reports no additional complaints GI Reports no additional complaints Physical exam (Primary Care) Vital Signs: Last Vital Signs Pulse 95 05/06/24 09:39 BP 126/80 05/06/24 09:39 Pulse Ox 98 05/06/24 09:39 Oxygen Delivery Method Room Air 05/06/24 09:39 BMI result Body Mass Index 44.2 Tobacco/Smoking Status: Tobacco use Status Tobacco use date assessed 05/06/24 05/06/24 09:54 Patient Tobacco Use Status Current everyday Tobacco 05/06/24 09:54 e-Cigarette/Vaping Use Never Used 05/06/24 09:54 PHQ-9: PHQ-9 Score PHQ-9: Total score 20 05/06/24 10:06 Depression Screening Interpretation: Positive Depression Screening Follow-up: Existing condition, In treatment and Community Mental Health Worker F/U Thrive Assessment: Date of Thrive Assessment Date Thrive assessed 05/06/24 05/06/24 09:54 Currently or been in a relationship where the following occur: I choose not to answer Const General: no acute distress HENMT Mouth: Normal oral and palatal mucosa present Eyes General: appearance normal, both eyes and all related structures Resp Effort & Inspection: normal respiratory effort Auscultation: clear to auscultation bilaterally Cardio Rhythm: regular rhythm Heart sounds: S1 normal heart sound present and S2 normal heart sound present GI Inspection: Yes normal to inspection Palpation (GI): Soft to palpation Percussion: Yes normal to percussion Auscultation: normal bowel sounds Assessment and Plan Assessment & Plan (1) Anxiety: Code(s): F41.9 - Anxiety disorder, unspecified Plan: f/u with therapist and psychiatry, cont Trazodone (2) Morbid obesity: Code(s): E66.01 - Morbid (severe) obesity due to excess calories Plan: weight loss discussed (3) Diabetes mellitus: Code(s): E11.9 - Type 2 diabetes mellitus without complications Plan: cont current tx and f/u with [facility] Orders: Orders PT Evaluation and Treatment 05/06/24 M54.50 - Low back pain, unspecified Referrals Psychiatry Referral F41.9 - Anxiety disorder, unspecified Medications: New metformin 1,000 mg PO BID 180 tabs 0RF trazodone 50 mg PO BEDTIME 90 tabs 0RF Coding Level of Care Code Est Pt Level 4 (06439) Diagnoses Anxiety F41.9 Morbid obesity E66.01 Diabetes mellitus E11.9
== END 2024-05-06 11:51 | disposition home or self-care (01) ==
PROVIDERS: PCP Internal Medicine; Visit Provider Internal Medicine
DX: E11.9 Type 2 diabetes mellitus without complications (principal); E66.01 Morbid (severe) obesity due to excess calories; Z68.41 Body mass index [BMI] 40.0-44.9, adult; F41.9 Anxiety disorder, unspecified
CPT/HCPCS: 99214

== ENCOUNTER 2024-06-16 11:11 | Outpatient (AMB) | payer OTHER, SELFPAY ==
[2024-06-16 11:16] VITALS: BP 110/76; PULSE 102; O2SAT 99; BMI 45.6
--- NOTE | 2024-06-16 11:16 | MHC.PC.OV ---
Vital Signs 06/16/24 11:16 Height 5 ft 7 in Weight 291 lb BMI 45.6 BP 110/76 Blood Pressure Location Lt brachial Position Sitting Pulse 102 H Pulse Source Pulse Oximeter Pulse Oximetry (%) 99 Oxygen Delivery Method Room Air Intake Visit Reasons: Ear Infection left ear Intake Note: Pt is here today for a sick visit. Pt c/o L ear pain for a week. Allergies peanut [PEANUTS] Allergy (Unknown, Verified 05/06/24 09:43) ANAPHYLAXIS Medication List - Last Reconciled 06/16/24 by Belinda Chisholm MD acetaminophen 975 mg PO Q6H PRN blood sugar diagnostic (FreeStyle Lite Strips) test blood sugar once a day clonidine HCl 0.1 mg PO TID flash glucose sensor (FreeStyle Tanya 2 Sensor kit) As directed FreeStyle Lite Meter (blood-glucose meter) test blood sugar once a day NS insulin glargine (Lantus Solostar U-100 Insulin) 60 units subcut BEDTIME insulin lispro subcut lancets (FreeStyle Lancets) test blood sugar once a day metformin 1,000 mg PO BID metformin 1,000 mg PO BID ondansetron 4 mg PO Q8H PRN oxycodone 5 mg PO QID PRN pen needle, diabetic (BD Ultra-Fine Mini Pen Needle) As directed trazodone 50 mg PO BEDTIME Tobacco use date assessed: 05/06/24 Dental Screening Dental Screen Date: 05/06/24 HPI Ear Infection left ear HPI Details Pt c/o L ear pain, decreased hearing, and fever for 1 week. Patient denies cough sore throat. Diabetes is controlled on current medications. [facility] Medical History Trauma in childhood Rash Obesity PTSD (post-traumatic stress disorder) Bipolar 1 disorder Anxiety Depression Hyperthyroidism Diabetes Asthma Surgical History Previous section Hx of cholecystectomy Family History Mother CADASIL (cerebral AD arteriopathy w infarcts and leukoencephalopathy) Father Heart disease Social History Housing: Apartment Alcohol intake: current Patient Tobacco Use Status: Current everyday Tobacco user Cigarette Packs Per Day: 2 e-Cigarette/Vaping Use: Never Used service: No Current occupational status: employed Cognitive needs: No Hearing needs: No Vision needs: No Questionnaire Thrive Questionnaire Date Thrive assessed: 05/06/24 I am a: Patient What is your living situation today?: I have a place to live, but I am worried about losing it in the future Within the past 12 months, did the food you bought not last and you didn't have the money to get more?: Sometimes True Within the past 12 months, did you worry whether your food would run out before you got money to buy more?: Sometimes True Do you have trouble paying for medicines?: No Do you have trouble getting transportation to medical appointments?: Yes Do you have trouble paying your heating and electricity bill?: I choose not to answer this question Do you have trouble taking care of your child, family member or friend?: I choose not to answer this question Do you have trouble with day-to-day activities such as bathing, preparing meals, shopping, managing finances, etc.?: No Are you currently unemployed and looking for a job?: Yes Are you interested in more education?: Yes Please select the resources that you would like help with: Housing/Jail, Food, Paying for medicine, Transportation, Utilities, Childcare, Care for elder or disabled, Daily support, Job search/training and Education Currently or been in a relationship where the following occur: I choose not to answer THRIVE Score: 4 AUDIT C Alcohol Use Questionnaire (AUDIT-C) 1. How often do you have a drink containing alcohol?: Never Total Score: 0 ONIEL-7 AMB Questionnaire ONIEL-7 Date ONIEL - 7 assessed: 05/06/24 Feeling nervous, anxious, or on edge: 3 = Nearly every day Not being able to stop or control worryin = Several days Worrying too much about different things: 2 = More than half the days Trouble relaxin = Nearly every day Being so restless that it is hard to sit still: 3 = Nearly every day Becoming easily annoyed or irritable: 3 = Nearly every day Feeling afraid as if something awful might happen: 1 = Several days Total NOIEL-7 score (0-4 normal; 5-9 mild; 10-14 moderate; 15-21 severe): 16 Source: Developed by Drs. Cesar Orellana, Kelsie Tello, Ck Noyola and colleagues, with an educational isa from [employer]. Review of Systems Const All systems reviewed & are unremarkable except as noted in HPI and below ENT Reports no additional complaints Card Reports no additional complaints Resp Reports no additional complaints Physical exam (Primary Care) Vital Signs: Last Vital Signs Pulse 102 H 06/16/24 11:16 BP 110/76 06/16/24 11:16 Pulse Ox 99 06/16/24 11:16 Oxygen Delivery Method Room Air 06/16/24 11:16 BMI result Body Mass Index 45.6 Tobacco/Smoking Status: Tobacco use Status Tobacco use date assessed 05/06/24 06/16/24 11:17 Patient Tobacco Use Status Current everyday Tobacco 06/16/24 11:17 e-Cigarette/Vaping Use Never Used 06/16/24 11:17 Thrive Assessment: Date of Thrive Assessment Date Thrive assessed 05/06/24 06/16/24 11:17 Currently or been in a relationship where the following occur: I choose not to answer Const General: no acute distress HENMT Head: Yes normal to inspection Ears: external ear abnormal (Erythema and swelling ) pain with movement of external ear, periauricular adenopathy and TM abnormal bulging and erythematous Throat: Yes posterior oropharynx normal Neck Neck: Yes supple Resp Effort & Inspection: normal respiratory effort Auscultation: clear to auscultation bilaterally Cardio Rhythm: regular rhythm Heart sounds: S1 normal heart sound present and S2 normal heart sound present Assessment and Plan Assessment & Plan (1) Otitis media: Code(s): H66.90 - Otitis media, unspecified, unspecified ear Plan: Augmentin 875 b.i.d. for 10 days prescribed and supportive care discussed with the patient Medications: New amoxicillin-pot clavulanate 875-125 mg 1 tab PO BID 20 tabs 0RF Coding Level of Care Code Est Pt Level 3 (24070) Diagnoses Otitis media H66.90
== END 2024-06-16 11:53 | disposition home or self-care (01) ==
PROVIDERS: PCP Internal Medicine; Visit Provider Internal Medicine
DX: H66.92 Otitis media, unspecified, left ear (principal)
CPT/HCPCS: 99213

== ENCOUNTER 2025-08-01 11:50 | Outpatient (AMB) | payer OTHER, SELFPAY ==
[2025-08-01 11:52] VITALS: BP 112/70; PULSE 93; RESP 16; O2SAT 97; BMI 39.3
--- NOTE | 2025-08-01 11:52 | A.OFFPC_ITS ---
Vital Signs 08/01/25 11:52 Height 5 ft 7 in Weight 251 lb BMI 39.3 BP 112/70 Blood Pressure Location Lt brachial Position Sitting Respiration 16 Pulse 93 Pulse Source Pulse Oximeter Pulse Oximetry (%) 97 Oxygen Delivery Method Room Air Intake Visit Reasons: forms Statistical Developer Required: No Accompanied by: Self / Same As Patient Allergies peanut (PEANUTS) Allergy (Unknown, Verified 05/06/24 09:43) ANAPHYLAXIS Medication List - Last Reconciled 08/01/25 by Belinda Chisholm MD acetaminophen 975 mg PO Q6H PRN albuterol sulfate 90 mcg/actuation 2 puffs inhalation Q6H PRN blood sugar diagnostic (FreeStyle Lite Strips) test blood sugar once a day clonidine HCl 0.1 mg PO TID clotrimazole 1% (Gyne-Lotrimin 7) 1 appful vaginal BEDTIME flash glucose sensor (FreeStyle Tanya 2 Sensor kit) As directed fluticasone propion-salmeterol 100-50 mcg/dose (Advair Diskus) 1 inh inhalation BID FreeStyle Lite Meter (blood-glucose meter) test blood sugar once a day NS insulin glargine (Lantus Solostar U-100 Insulin) 60 units subcut BEDTIME insulin lispro subcut lancets (FreeStyle Lancets) test blood sugar once a day metformin 1,000 mg PO BID metformin 1,000 mg PO BID ondansetron 4 mg PO Q8H PRN pen needle, diabetic (BD Ultra-Fine Mini Pen Needle) As directed trazodone 50 mg PO BEDTIME Tobacco use date assessed: 08/01/25 Dental Screening Dental Screen Date: 08/01/25 Did you have a dental visit in the last 12 months?: Yes Did you have a dental problem in the last 6 months where you did not have access to dental care?: No Was dental information given to patient?: Patient has dentist HPI forms HPI Details Patient presents for a follow-up. She is established with [facility] endocrinology for insulin-dependent diabetes and has been taking Mounjaro for the last 4 months which improved her diabetes control significantly. Patient lost about 20 lb. She complains of recurrent painful skin cysts in bilateral groin and axillary areas. Patient is established with a psychiatrist and chronic depression is controlled on current medications. [facility] Medical History (Updated 08/01/25 @ 12:50 by Belinda Chisholm MD) Morbid obesity Diabetes type 2, uncontrolled Trauma in childhood Rash PTSD (post-traumatic stress disorder) Bipolar 1 disorder Anxiety Depression Hyperthyroidism Diabetes Asthma Surgical History (Updated 08/01/25 @ 12:24 by Belinda Chisholm MD) History of unilateral oophorectomy Previous section Hx of cholecystectomy Family History Mother CADASIL (cerebral AD arteriopathy w infarcts and leukoencephalopathy) Father Heart disease Social History Housing: Apartment Alcohol intake: current Patient Tobacco Use Status: Current everyday Tobacco user Cigarette Packs Per Day: 2 e-Cigarette/Vaping Use: Never Used service: No Current occupational status: employed Cognitive needs: No Hearing needs: No Vision needs: No Questionnaire PHQ-9 Over the last 2 weeks, how often have you been bothered by any of the following problems? 1. Little interest or pleasure in doing things: nearly every day 2. Feeling down, depressed, or hopeless: nearly every day 3. Trouble falling or staying asleep, or sleeping too much: nearly every day 4. Feeling tired or having little energy: nearly every day 5. Poor appetite or overeating: more than half the days 6. Feeling bad about yourself - or that you are a failure or have let yourself or your family down: several days 7. Trouble concentrating on things, such as reading the newspaper or watching television: nearly every day 8. Moving or speaking so slowly that other people could have noticed. Or the opposite - being so fidgety or restless that you have been moving around a lot more than usual: more than half the days 9. Thoughts that you would be better off or of hurting yourself in some way: not at all Total score: 20 Depression Screening Interpretation: Positive (Established with Psychiatry and counselor) Depression Screening Follow-up: Existing condition, In treatment and Community Mental Health Worker F/U Depression Screening Done: Yes 07689 - PHQ-9 Billing: Yes Source: Developed by Drs. Cesar Orellana, Kelsie Tello, Ck Noyola and colleagues, with an educational isa from [employer]. Thrive Questionnaire Date Thrive assessed: 05/06/24 I am a: Patient What is your living situation today?: I have a place to live, but I am worried about losing it in the future Within the past 12 months, did the food you bought not last and you didn't have the money to get more?: Sometimes True Within the past 12 months, did you worry whether your food would run out before you got money to buy more?: Sometimes True Do you have trouble paying for medicines?: No Do you have trouble getting transportation to medical appointments?: Yes Do you have trouble paying your heating and electricity bill?: I choose not to answer this question Do you have trouble taking care of your child, family member or friend?: I choose not to answer this question Do you have trouble with day-to-day activities such as bathing, preparing meals, shopping, managing finances, etc.?: No Are you currently unemployed and looking for a job?: Yes Are you interested in more education?: Yes Currently or been in a relationship where the following occur: I choose not to answer THRIVE Score: 4 ONIEL-7 AMB Questionnaire ONIEL-7 Date ONILE - 7 assessed: 08/01/25 Feeling nervous, anxious, or on edge: 3 = Nearly every day Not being able to stop or control worryin = Several days Worrying too much about different things: 1 = Several days Trouble relaxin = Nearly every day Being so restless that it is hard to sit still: 3 = Nearly every day Becoming easily annoyed or irritable: 3 = Nearly every day Feeling afraid as if something awful might happen: 1 = Several days Total ONIEL-7 score (0-4 normal; 5-9 mild; 10-14 moderate; 15-21 severe): 15 Source: Developed by Drs. Cesar Orellana, Kelsie Tello, Ck Noyola and colleagues, with an educational isa from [employer]. ONIEL-7 Assessment Billing ONIEL-7 Assessment Tool: ONIEL-7 Assessment 95286 Review of Systems Const All systems reviewed & are unremarkable except as noted in HPI and below Eyes Reports no additional complaints ENT Reports no additional complaints Card Reports no additional complaints Resp Reports no additional complaints GI Reports no additional complaints Reports no additional complaints Physical exam (Primary Care) Vital Signs: Last Vital Signs Pulse 93 10/14/25 11:52 Resp 16 08/01/25 11:52 BP 112/70 08/01/25 11:52 Pulse Ox 97 08/01/25 11:52 Oxygen Delivery Method Room Air 08/01/25 11:52 BMI result Body Mass Index 39.3 Tobacco/Smoking Status: Tobacco use Status Tobacco use date assessed 08/01/25 08/01/25 12:10 Patient Tobacco Use Status Current everyday Tobacco 08/01/25 11:52 e-Cigarette/Vaping Use Never Used 08/01/25 11:52 PHQ-9: PHQ-9 Score PHQ-9: Total score 20 08/01/25 12:10 Depression Screening Interpretation: Positive (Established with Psychiatry and counselor) Depression Screening Follow-up: Existing condition, In treatment and Community Mental Health Worker F/U Thrive Assessment: Date of Thrive Assessment Date Thrive assessed 05/06/24 08/01/25 11:52 Currently or been in a relationship where the following occur: I choose not to answer Const General: no acute distress HENMT Head: Yes normal to inspection Throat: Yes posterior oropharynx normal Neck Neck: Yes supple Resp Effort & Inspection: normal respiratory effort Auscultation: clear to auscultation bilaterally Cardio Rhythm: regular rhythm Heart sounds: S1 normal heart sound present and S2 normal heart sound present GI Inspection: Yes normal to inspection Palpation (GI): Soft to palpation Percussion: Yes normal to percussion Auscultation: normal bowel sounds Skin Other: Extensive scarring in axillary and inguinal area bilaterally Coding Level of Care Code Est Pt Level 4 (18806) Diagnoses Diabetes type 2, uncontrolled E11.65 Bipolar 1 disorder F31.9 Morbid obesity E66.01 Hidradenitis suppurativa L73.2 Additional Codes ONIEL-7 Assessment Billing - ONIEL-7 Assessment Tool: ONIEL-7 Assessment 90693 ([id number]) PHQ-9 - 13154 - PHQ-9 Billing: Yes ([id number]) Assessment & Plan Assessment & Plan (1) Diabetes type 2, uncontrolled: Comment: established with [facility] anders, on Insulin, started Mounjaro in 03/2025 Code(s): E11.65 - Type 2 diabetes mellitus with hyperglycemia Category: Medical Plan: Patient is established with the [facility]. Continue current medications. She will return for fasting blood work including A1c. Patient is up-to-date with diabetic eye exam (2) Bipolar 1 disorder: Comment: therapist and prescriber Code(s): F31.9 - Bipolar disorder, unspecified Category: Medical Plan: Follow-up with psychiatry continue current medications (3) Morbid obesity: Comment: Losing weight on GLP 1 agonistHarshad Code(s): E66.01 - Morbid (severe) obesity due to excess calories Category: Medical Plan: Decreasing caloric intake increasing physical activity discussed with the patient she will continue GLP 1 agonist (4) Hidradenitis suppurativa: Code(s): L73.2 - Hidradenitis suppurativa Category: Medical Plan: Skin care discussed with the patient spironolactone 50 mg daily will be started for 6 weeks and the dose will be increased depending on side effects Orders: Orders Complete Blood Count Auto Diff Today E11.65 - Type 2 diabetes mellitus with hyperglycemia, Z90.721 - Acquired absence of ovaries, unilateral Lipid Panel Today E11.65 - Type 2 diabetes mellitus with hyperglycemia, Z90.721 - Acquired absence of ovaries, unilateral Hemoglobin A1c Today E11.65 - Type 2 diabetes mellitus with hyperglycemia, Z90.721 - Acquired absence of ovaries, unilateral TSH reflex Free T4 Today E11.65 - Type 2 diabetes mellitus with hyperglycemia, Z90.721 - Acquired absence of ovaries, unilateral Comprehensive [place]. Panel Fast Today E11.65 - Type 2 diabetes mellitus with hyperglycemia, Z90.721 - Acquired absence of ovaries, unilateral Microalbumin, Random (w Creat) Today E11.65 - Type 2 diabetes mellitus with hyperglycemia, Z90.721 - Acquired absence of ovaries, unilateral UA w Microscopic Today E11.65 - Type 2 diabetes mellitus with hyperglycemia, Z90.721 - Acquired absence of ovaries, unilateral Medications: New clotrimazole 1% (Gyne-Lotrimin 7) 1 appful vaginal BEDTIME 45 grams 0RF fluticasone propion-salmeterol 100-50 mcg/dose (Advair Diskus) 1 inh inhalation BID 60 ea 4RF spironolactone 50 mg PO DAILY 30 tabs 2RF spironolactone 50 mg PO DAILY 30 tabs 0RF Refilled albuterol sulfate 90 mcg/actuation 2 puffs inhalation Q6H PRN 6.7 grams 3RF shortness of breath or wheezing
== END 2025-08-01 12:51 | disposition home or self-care (01) ==
PROVIDERS: PCP Internal Medicine; Visit Provider Internal Medicine
DX: E11.65 Type 2 diabetes mellitus with hyperglycemia (principal); F31.9 Bipolar disorder, unspecified; E66.01 Morbid (severe) obesity due to excess calories; Z68.39 Body mass index [BMI] 39.0-39.9, adult; L73.2 Hidradenitis suppurativa

== ENCOUNTER → 2025-08-01 11:50 | Outpatient (BNVA) | payer OTHER, SELFPAY | PROVIDERS: PCP Internal Medicine; Visit Provider Internal Medicine | DX: E11.65 Type 2 diabetes mellitus with hyperglycemia (principal); F31.9 Bipolar disorder, unspecified; E66.01 Morbid (severe) obesity due to excess calories; L73.2 Hidradenitis suppurativa; Z68.39 Body mass index [BMI] 39.0-39.9, adult; Z79.4 Long term (current) use of insulin | CPT/HCPCS: 96127; 99212 ==